=== PATIENT | female | born 1985 | race Caucasian/White ===

== ENCOUNTER 2018-06-28 15:29 | Inpatient (IN) | payer OTHER ==
[~2018-06-28] VITALS: Ht 152.4 cm; Wt 61.5 kg
[~2018-06-28 15:29] MED LIST: PHENYLephrine (100 MCG/ML) 5ML SYG ONE
[2018-06-28 16:46] VITALS: Ht 152.4 cm; Wt 61.5 kg
[2018-06-28 16:47] VITALS: BP 122/71; PULSE 100
[2018-06-28] MEDS ORDERED: PNV11TAB PO (16:48)
[2018-06-28] MEDS ORDERED: LACTATED RINGER'S 1,000 ML IV SCH (18:30)
[2018-06-28] MEDS ORDERED: CARBOPROST 250 MCG INJ IM PRN (20:30)
[2018-06-28] MEDS ORDERED: OXYTOCIN 30 UNITS/LR 500 ML IV SCH (20:30)
[2018-06-28] MEDS ORDERED: MISOPROSTOL 200 MCG TAB PR PRN (20:30)
[2018-06-28] MEDS ORDERED: OXYTOCIN 30 UNITS/LR 500 ML IV PRN (20:30)
[2018-06-28] MEDS ORDERED: AMPICILLIN 2 GM/NS (PMX) 100 ML IV SCH (20:30)
[2018-06-28] MEDS ORDERED: CEFAZOLIN 2 GM/50 ML (PMX) 50 ML IVPB SCH (20:30)
[2018-06-28] MEDS ORDERED: METHYLERGONOVINE 0.2 MG INJ IM PRN (20:30)
--- NOTE | 2018-06-28 20:42 | HP ---
Date/Time of Note Date/Time of Note DATE: 06/28/18 TIME: 20:37 OB - History Hx of Present Free Text/Dictation 33 years old 3 para 2002 with 2 previous delivery and single intrauterine at 37 weeks and 5 days with a NORBERTO of 07/14/2018 complaining of uterine contractions and vaginal spotting. She states good movement. She denies nausea, vomiting, shortness of breath, chest pain, headache, visual changes or LOF. She had her care at [facility] and recently moved to the [facility]. Chief Complaint: Uterine contractions and vaginal spotting Estimated Due Date: Jul 14, 2018 : 3 Para: 2 Spontaneous : 0 Therapeutic : 0 Care: Good Care Ultrasounds: Normal mid trimester US Obstetrical Complications: None Medical Complications: None Past Family/Social History * Past Medical: Noncontributory Past surgical history: x2 Family, social, allergy and Obstetric Histories reviewed which are unremarkable OB Admission Exam Vital Signs Vital Signs Vital Signs Date Temp Pulse Resp B/P (MAP) Pulse Ox O2 O2 Flow FiO2 Time Delivery Rate 06/28/18 99.0 100 122/71 16:47 (88) Physical Exam HEENT: WNL Heart: Rhythm Normal Lungs: Clear Abdomen: WNL Extremities: Normal Cervical Dilatation: Fingertip Effacement: Other (60%) Station: -2 Membranes: Intact Heart Rate: 130's Accelerations: Accelerations Present Decelerations: No Decelerations Varibility: Moderate Contractions on Admission: < 5 Minutes Apart Intensity: Mild Last 72 hours Lab Results FINDINGS: Gestation: Single live intrauterine gestation. Cardiac activity: 141 beats per minute. Presentation: Vertex. Placenta: Location: Posterior Appearance: No previa or abruption. Measurements: BPD = 9.2 cm, 37 weeks and 3 days HC = 33 cm, 37 weeks and 3 days AC = 33.1 cm, 37 weeks and 0 days FL = 7.1 cm, 36 weeks and 4 days Gestational Age: AUA estimated gestational age: 37 weeks 1 day LMP estimated gestational age: 37 weeks 5 days AUA estimated date of delivery: 07/18/2018 The EFW = 3079 g, 40%ile based on LMP age. Biophysical profile: - movement = 2/2 - tone = 2/2 - breathing = 2/2 - MERCY = 2/2 Total = 8/8 IMPRESSION: Single live intrauterine gestation of 37 weeks 1 day by ultrasound criteria. Normal biophysical profile. OB Assessment/Plan Other plan: 33 years old with 2 previous delivery at 37 weeks and 5 days in labor - FHR: No sign of metabolic acidosis- Category I - Continuous EFM, toco - CBC, blood type and screen - Complete labs ordered The risk of delivery including but not limited to bleeding, infection, injury to other organs (bowel, bladder, ureter, vessels, nerves), injury to fetus, blood transfusion, blood transfusion related infection, risk of anesthesia, adhesion, needs for future , removal of uterus or any other indicated surgery was discussed with the patient and her family. She expressed understanding. All of her questions were answered. She signed the informed consent. PHYSICIAN'S VERIFICATION OF INFORMED CONSENT The patient and her family member counseled regarding the procedure, its indications, risks, potential complications and alternatives and any questions were answered. Consent was obtained. PLANNED PROCEDURE/TREATMENT: delivery with possible using vacuum/forceps and any other indicated surgery PHYSICIAN'S VERIFICATION OF INFORMED CONSENT FOR BLOOD TRANSFUSION: There is a reasonable possibility that blood transfusion will be necessary as a result of the patient's procedure. I have discussed the following with the patient/[employer] representative: An explanation of the benefits and risks of the transfusion of blood or blood products and the possible alternatives. All questions have been answered to the patient's satisfaction. INFORMED CONSENT:The patient has been informed of: The nature of the proposed care, treatment, services, medications, interventions or procedures. Potential benefits, risks or side effects, including potential problems related to recuperation. The likelihood of achieving care treatment and service goals. Reasonable alternatives to the proposed care, treatment and service. The relevant risks, benefits and side effects related to alternatives, including the possible results of not receiving care, treatment and services. When indicated, any limitations on the confidentiality of information learned from or about the patient. If appropriate, the risks, benefits and alternatives of the drugs to be used for sedation/analgesia including moderate sedation. If appropriate, patient has been provided information on the risks, benefits and alternatives to the transfusion of blood and/or blood products. If appropriate, patient has been provided information regarding the Cristiano Alex Blood Act. HAKEEM ESCOBAR Jun 28, 2018 20:42
--- NOTE | 2018-06-28 20:56 | PREAC ---
Date/Time of Note Date/Time of Note DATE: 06/28/18 TIME: 20:54 Anesthesia Eval and Record Evaluation Time Pre-Procedure Interview DATE: 06/28/18 TIME: 20:54 Age 33 Sex female NPO: 8 hrs Preoperative diagnosis repeat c section Planned procedure csection Past Medical History Past Medical History: Includes : Gestational age: (37.5) Surgery & Anesthesia Issues Other issues, No known issue Meds Anticoagulation: No Beta Patricia within 24 hr: No Reason Beta Patricia not given: Pt. not on B-Patricia Reported Medications [id number] ( 19) 1 Each Tablet, 1 TAB PO DAILY, TAB 06/28/18 Current Medications Lactated Ringer's 1,000 ml @ 125 mls/hr Q8H IV Last administered on 06/28/18at 20:45; Admin Dose 125 MLS/HR; Start 06/28/18 at 18:30 Ampicillin 100 ml @ 100 mls/hr ONCE IV ; Start 06/28/18 at 20:30 Cefazolin Sodium/ Dextrose 50 ml @ 100 mls/hr ONCE IVPB ; Start 06/28/18 at 2 0:30 Oxytocin/Lactated Ringer's 500 ml @ 125 mls/hr POST IV ; Start 06/28/18 at 20:30 Oxytocin/Lactated Ringer's 500 ml @ 0 mls/hr ONCE PRN IV .VAGINAL BLEEDING; Start 06/28/18 at 20:30 Methylergonovine Maleate (Methergine) 0.2 mg ONCE PRN IM .VAGINAL BLEEDING; Start 06/28/18 at 20:30 Carboprost Tromethamine (Hemabate) 250 mcg ONCE PRN IM .VAGINAL BLEEDING; Start 06/28/18 at 20:30 Misoprostol (Cytotec) 1,000 mcg ONCE PRN MT .VAGINAL BLEEDING; Start 06/28/18 at 20:30 Meds reviewed: Yes Allergies Coded Allergies: No Known Allergy (Unverified , 06/28/18) Allergies Reviewed: Yes Labs/Studies Labs Reviewed: Reviewed by anesthesiologist Result Diagram: 06/28/18 2019 Laboratory Tests 06/28/18 20:19 test: Positive Studies: ECG (n/a), CXR (n/a) Pre-procedure Exam Last vitals Vital Signs Date Temp Pulse Resp B/P (MAP) Pulse Ox O2 O2 Flow FiO2 Time Delivery Rate 06/28/18 99.0 100 122/71 16:47 (88) Airway: Adequate mouth opening Mallampati: Mallampati I Teeth: Normal Lung: Normal Heart: Normal ASA Physical Status ASA physical status: 2 Emergency: None Planned Anesthetic Neuraxial: Spinal Planned Pain Management Sub-arachniod narcotics Pre-operative Attestations Prior to commencing anesthesia and surgery, the patient was re-evaluated, there was verification of: *The patient's identity *The results of appropriate recent lab work and preoperative vital signs *The above evaluation not changing prior to induction *Anesthetic plan, risk benefits, alternative and complications discussed with patient/family; questions answered; patient/family understands, accepts and wishes to proceed. JOSÉ MIGUEL CAMAERNA MD Jun 28, 2018 20:56
[2018-06-28] MEDS ORDERED: CITRIC ACID/NA CITRATE 30 ML CUP PO ONE (21:30)
[2018-06-28] MEDS ORDERED: KETOROLAC 30 MG INJ ONE (21:31)
[2018-06-28] MEDS ORDERED: morphine SULFATE/PF (10 MG/10 ML) INJ ONE (21:31)
[2018-06-28] MEDS ORDERED: ONDANSETRON 4 MG INJ ONE (21:31)
[2018-06-28] MEDS ORDERED: METOCLOPRAMIDE 10 MG INJ ONE (21:31)
[2018-06-28] MEDS ORDERED: BUPIVACAINE 0.75%/DEXT (SPINAL) 2 ML INJ ONE (21:34)
[2018-06-28] MEDS ORDERED: OXYTOCIN 30 UNITS/LR 500 ML IV ONE (22:39)
--- NOTE | 2018-06-29 00:46 | OPPN ---
Date/Time of Note Date/Time of Note DATE: 06/29/18 TIME: 00:45 Anesthesia Follow up Anesthesia Follow up Last documented vital signs Vital Signs Date Temp Pulse Resp B/P (MAP) Pulse Ox O2 O2 Flow FiO2 Time Delivery Rate 06/28/18 99.0 100 122/71 16:47 (88) Respiratory function: WNL Cardiovascular function: WNL Comments A 33 year female s/p spinal with duramorph for post op date POD #1 is fine. no pain, N/V, itching , or headache. no neural deficit JOSÉ MIGUEL CAMARENA MD Jun 29, 2018 00:46
[2018-06-29] MEDS ORDERED: morphine 2 MG INJ IV PRN ×6 (01:00→08:30)
[2018-06-29] MEDS ORDERED: KETOROLAC 30 MG INJ IV PRN ×3 (01:00→08:30)
[2018-06-29] MEDS ORDERED: ONDANSETRON 4 MG INJ IV PRN ×2 (01:00)
[2018-06-29] MEDS ORDERED: morphine (1 MG/ML) 10ML SYRINGE IV PRN ×3 (01:00)
[2018-06-29] MEDS ORDERED: NALOXONE (0.4 MG/ML) INJ IV PRN ×2 (01:00→08:30)
[2018-06-29] MEDS ORDERED: DIPHENHYDRAMINE 50 MG INJ IV PRN ×2 (01:00)
[2018-06-29 01:22] VITALS: BP 124/57; PULSE 68; RESP 18
[2018-06-29] MEDS ORDERED: OXYTOCIN 30 UNITS/LR 500 ML IV SCH (01:55)
[2018-06-29] MEDS ORDERED: OXYTOCIN 30 UNITS/LR 500 ML IV PRN (02:00)
[2018-06-29] MEDS ORDERED: METHYLERGONOVINE 0.2 MG TAB PO PRN (02:00)
[2018-06-29] MEDS ORDERED: MISOPROSTOL 200 MCG TAB PR PRN (02:00)
[2018-06-29] MEDS ORDERED: CARBOPROST 250 MCG INJ IM PRN (02:00)
[2018-06-29] MEDS ORDERED: METHYLERGONOVINE 0.2 MG INJ IM PRN (02:00)
--- NOTE | 2018-06-29 02:06 | OPR ---
Operative Report Planned Procedure Procedure date Jun 29, 2018 Procedure(s) Repeat low transverse delivery Performed by see signature line Programming Specialist: MIGUELITO ABEBE MD Anesthesiologist: JOSÉ MIGUEL CAMARENA MD Pre-procedure diagnosis 33 years old with 2 previous delivery at 37 weeks and 5 days in labor [id number] Anesthesia Type: [id number] spinal Post-Procedure Post-procedure diagnosis 1. 33 years old with 2 previous delivery at 37 weeks and 5 days in labor 2. There was a 5 cm window on lower uterine segment Findings 1. Normal uterus except there was 5 cm window on lower uterine segment. Normal fallopian tubes and ovaries 2. Viable male in cephalic presentation. 8 at one minute and 9 in 5 minutes. Weight: 3205 g - 7 pound 1 ounce. Time of delivery: 22:13 3. Placenta with three vessel cord 4. Amniotic fluid - Clear Estimated Blood Loss: 500 - 600 mls Specimen(s) none Grafts/Implant(s) none Complication(s) none Pt Condition post procedure: stable Disposition: PACU Procedure Description INDICATION AND HISTORY: A 33 years old with 2 previous delivery at 37 weeks and 5 days in labor. The risk of delivery including but not limited to bleeding, infection, injury to other organs (bowel, bladder, ureter, vessels, nerves), injury to fetus, blood transfusion, blood transfusion related infection, risk of anesthesia, adhesion, needs for future , removal of uterus or any other indicated surgery was discussed with the patient and her family. She expressed understanding. All of her questions were answered. She signed the informed consent. DESCRIPTION OF OPERATION: The patient was taken to the operating room, where she was identified and the procedure was verified. The patient received two gram of Ancef 30 minutes prior to surgery. Spinal anesthesia was placed. The patient placed in the dorsal supine position with a left tilt. The heart rate was 135 bpm. The patient was then prepped and draped in the normal sterile fashion. A Pfannenstiel skin incision was made and carried down to the fascia with knife. The fascia was incised in the midline and the fascial incision was carried laterally with Hector scissors. The superior portion of the fascial incision was then grasped with Doc clamps and tented up and dissected off the underlying rectus muscle with sharp dissection. The lower portion of the fascial incision was then made in a similar fashion. The rectus muscle was and the peritoneum was entered. The peritoneal incision was then stretched and a bladder blade was inserted. As noted above there was a 5 cm window on lower uterine segment. The the utero-vesical peritoneal reflection was incised transversely and the bladder flap was reflected inferiorly.Then, an incision was made in the lower uterine segment in a transverse fashion above the window with a knife and extended bluntly. Vacuum used to assist delivery of head. The was delivered atraumatically in cephalic presentation with the above findings. The umbilical cord was clamped and cut. The neonatology resuscitation team was present and the baby was handed to them. A cord blood sample was obtained for further evaluation. The placenta and membrane, which appeared normal were Removed. The uterus was exteriorized and cleared of all clot and debris. The uterus was then closed in a two layer fashion with 0- Monocryl. At the time of closure, hemostasis was noted. The gutters were irrigated. The peritoneum was reapproximated with 3-0 *Vicryl. The muscle was reapproximated with 3-0 Vicryl. The fascia was approximated with 0-Vicryl in a running fashion. The subcutaneous tissue was re approximated with 3-0 vicryl. The skin was closed with 4-0 Monocryl. All instruments, sponges and needle counts were correct x3. The patient tolerated the procedure well. She transferred to the recovery room in stable condition. HAKEEM ESCOBAR Jun 29, 2018 02:06
--- NOTE | 2018-06-29 03:58 | TRIAGE ---
OB Triage Datetime Report Generated by CPN: 06/29/2018 03:58 Datetime: 06/29/2018 01:30 Stage of : Labor Datetime: 06/29/2018 01:00 Stage of : Recovery Pain Assessment Pain Scale: 0 Pain Presence: None/Denies Pain Type: N/A Datetime: 06/29/2018 00:45 Stage of : Recovery Pain Assessment Pain Scale: 0 Pain Presence: None/Denies Pain Type: N/A Datetime: 06/29/2018 00:30 Stage of : Recovery Pain Assessment Pain Scale: 0 Pain Presence: None/Denies Pain Type: N/A Datetime: 06/29/2018 00:15 Stage of : Recovery Pain Assessment Pain Scale: 0 Pain Presence: None/Denies Pain Type: N/A Datetime: 06/29/2018 00:00 Stage of : Recovery Pain Assessment Pain Scale: 0 Pain Presence: None/Denies Pain Type: N/A Datetime: 06/28/2018 23:45 Stage of : Recovery Pain Assessment Pain Scale: 0 Pain Presence: None/Denies Pain Type: N/A Datetime: 06/28/2018 23:30 Stage of : Recovery Pain Assessment Pain Scale: 0 Pain Presence: None/Denies Pain Type: N/A Datetime: 06/28/2018 23:15 Stage of : Recovery Pain Assessment Pain Scale: 0 Pain Presence: None/Denies Pain Type: N/A Datetime: 06/28/2018 22:55 Stage of : Recovery Pain Assessment Pain Scale: 0 Pain Presence: None/Denies Pain Type: N/A Datetime: 06/28/2018 21:00 Labor Evaluation Frequency: OCCASIONAL Monitor Mode: External Quality: Mild Pattern: Normal: <= 5 Contractions in 10 Minutes Resting Tone Hansen: Relaxed Heart Rate FHR Baseline Rate: 150 Monitor Mode: External US FHR Baseline Changes: No Baseline Change Variability: Moderate 6-25 bpm Accelerations: 15X15 Decelerations: None Category: Category I Datetime: 06/28/2018 20:26 Assessment Type: Ongoing Assessment Vaginal Bleeding: None Maternal Assessment Level of Consciousness: Fully Conscious DTR's/Clonus: DTRs 2+; No Clonus Headache: Denies Blurred Vision: No Respiratory Effort: Unlabored; Regular Rhythm; Equal Expansion Breath Sounds, Left: Clear and Equal Breath Sounds, Right: Clear and Equal Nausea/Vomiting: Denies RUQ Epigastric Pain: Denies Lower Extremities Edema: Bilateral Lower Extremities (Annotations: TRACE) Upper Extremities Edema: Bilateral Upper Extremities (Annotations: TRACE) Facial Edema: None Fall Risk Assessment History of Falling: (0) No Secondary Diagnosis: (0) No Ambulatory Aid: (0) Bedrest/Nurse Assist IV Therapy: (20) Yes Gait: (0) Normal/Bedrest/Immobile Mental Status: (0) Oriented to Own Ability Fall Score: 20 Fall Risk Score Definition: No Risk: No action required Pain Assessment Pain Scale: 4 Pain Presence: Intermittent Pain Type: Contraction Pain Location: Abdomen Membrane Status: Intact Datetime: 06/28/2018 19:50 Stage of : OB Triage Datetime: 06/28/2018 19:28 Stage of : OB Triage Labor Evaluation Frequency: 2-5 Monitor Mode: External Quality: Moderate Pattern: Normal: <= 5 Contractions in 10 Minutes Resting Tone Hansen: Relaxed Heart Rate FHR Baseline Rate: 155 Monitor Mode: External US FHR Baseline Changes: No Baseline Change Variability: Moderate 6-25 bpm Accelerations: 15X15 Decelerations: None Category: Category I Pain Assessment Pain Scale: 4 Pain Presence: Intermittent Pain Type: Contraction Pain Location: Abdomen Datetime: 06/28/2018 18:35 Labor Evaluation Frequency: 2-4 Monitor Mode: External Duration (sec)2399: 50-70 Quality: Mild Pattern: Normal: <= 5 Contractions in 10 Minutes Resting Tone Hansen: Relaxed Heart Rate FHR Baseline Rate: 160 Monitor Mode: External US Variability: Moderate 6-25 bpm Accelerations: 10X10 Decelerations: None Category: Category I Pain Assessment Pain Scale: 0 Pain Presence: Intermittent Pain Type: Cramping Pain Location: Abdomen Pain Goal: 3 Pain Relief Measures: Comfort Measures Datetime: 06/28/2018 17:37 Stage of : OB Triage Datetime: 06/28/2018 17:31 Labor Evaluation Frequency: 2-5 Monitor Mode: External Duration (sec)2399: 40-50 Quality: Mild Pattern: Normal: <= 5 Contractions in 10 Minutes Resting Tone Hansen: Relaxed Heart Rate FHR Baseline Rate: 135 Monitor Mode: External US Variability: Moderate 6-25 bpm Accelerations: 10X10 Decelerations: None Category: Category I Pain Assessment Pain Scale: 0 Pain Presence: Intermittent Pain Type: Cramping Pain Location: Abdomen Pain Goal: 3 Pain Relief Measures: Comfort Measures Datetime: 06/28/2018 16:36 Stage of : OB Triage Assessment Type: Triage Maternal Assessment Level of Consciousness: Fully Conscious DTR's/Clonus: DTRs 2+; No Clonus Headache: Denies Blurred Vision: No Respiratory Effort: Unlabored; Regular Rhythm; Equal Expansion Breath Sounds, Left: Clear and Equal Breath Sounds, Right: Clear and Equal Nausea/Vomiting: Denies RUQ Epigastric Pain: Denies Facial Edema: None Temperature Route: Axillary Fall Risk Assessment History of Falling: (0) No Secondary Diagnosis: (0) No Ambulatory Aid: (0) Bedrest/Nurse Assist IV Therapy: (0) No Gait: (0) Normal/Bedrest/Immobile Mental Status: (0) Oriented to Own Ability Fall Score: 0 Fall Risk Score Definition: No Risk: No action required Labor Evaluation Frequency: 2-3 Monitor Mode: External Duration (sec)2399: 50-70 Quality: Mild Pattern: Normal: <= 5 Contractions in 10 Minutes Interventions: Sterile Vaginal Exam Heart Rate FHR Baseline Rate: 145 Monitor Mode: External US Variability: Moderate 6-25 bpm Accelerations: 10X10 Decelerations: None Category: Category I Pain Assessment Pain Scale: 0 Pain Presence: None/Denies Pain Type: N/A Pain Goal: 3 Pain Relief Measures: Comfort Measures Vaginal Exam Dilatation (cms): 0.5 Effacement (%): 60 Station: -2 Exam By: S GUILLERMINA Membrane Status: Intact Datetime: 06/28/2018 16:35 Time of Arrival: 06/28/2018 15:25 EGA: 37.5 Arrived By: Ambulatory Arrived From: Home Chief Complaint: C/O UC'S Q 10 MIN TODAY WITH SCANT BLEEDING, DENIES LEAKING OF WATER Movement: Present Contractions: Irregular Rupture of Membranes: Denies Vaginal Bleeding: Scant Vaginal Discharge: Present Recent Sexual Intercouse: Denies Abdominal Trauma: Not Applicable Patient Complaints: Contractions; Cramping Time Provider Notified: 06/28/2018 17:37 Provider Notified: brigido Initial Plan: MONITOR, VE, bpp efw, iv hydration Membranes Ruptured Date/Time: 06/28/2018 22:12 Membranes Rupture Method: Artificial Amniotic Fluid Color: Clear Amniotic Fluid Amount: Moderate Amniotic Fluid Odor: None Presentation 'A': Cephalic
[2018-06-29 04:15] VITALS: BP 113/66; PULSE 71; RESP 19
[2018-06-29 08:20] VITALS: BP 102/63; PULSE 89; RESP 18
[2018-06-29] MEDS: SENNA/DOCUSATE NA (8.6MG/50MG) TAB PO SCH ×2 (09:00→21:08)
[2018-06-29] MEDS: DEXTROSE 5%-LR 1,000 ML IV SCH ×3 (09:55→17:55)
[2018-06-29] MEDS: LANOLIN HPA 1 PKT TOP PRN (10:45)
[2018-06-29 12:21] VITALS: BP 123/70; PULSE 83; RESP 18
--- NOTE | 2018-06-29 14:46 | QN ---
Documentation Comment no flatus yet still have dockery in tolerating liquid well vss afebrile abdomen soft wound dry lochia min calf neg fpr tenderness A s/p repeat c/s #1 P ambulate MIGUELITO ABEBE MD Jun 29, 2018 14:46
[2018-06-29 15:30] VITALS: BP 104/58; PULSE 91; RESP 18
[2018-06-29 19:35] VITALS: BP 100/59; PULSE 88
[2018-06-30] MEDS ORDERED: HYDROCODONE/APAP (5/325) TAB PO PRN ×2 (01:36→11:00)
[2018-06-30] MEDS: HYDROCODONE/APAP (5/325) TAB PO SCH ×3 (01:41→17:16)
[2018-06-30] MEDS: DEXTROSE 5%-LR 1,000 ML IV SCH ×3 (01:55→17:55)
[2018-06-30 04:25] VITALS: BP 103/55; PULSE 85; RESP 18
[2018-06-30] MEDS: IBUPROFEN 800 MG TAB PO SCH ×3 (05:36→21:46)
[2018-06-30 07:45] VITALS: BP 107/57; PULSE 93; RESP 18
[2018-06-30] MEDS ORDERED: FERROUS GLUCONATE (EC) 325 MG TAB PO SCH (09:00)
[2018-06-30] MEDS: SENNA/DOCUSATE NA (8.6MG/50MG) TAB PO SCH ×2 (09:21→21:08)
--- NOTE | 2018-06-30 10:33 | PN ---
Date/Time of Note Date/Time of Note DATE: 06/30/18 TIME: 10:32 OB Subjective Subjective Subjective Patient without complaints. Tolerating regular diet, ambulating, passing fla tus, pain controlled. OB Objective Objective Objective Gen: NAD Abd: I-C/D/I OB Assessment/Plan Other Assessment: POD2 s/p repeat Other plan: -continue routine postop care -anticipate discharge home tomorrow AYANA SUAREZ Jun 30, 2018 10:33
--- NOTE | 2018-06-30 10:39 | PAC ---
Date/Time of Note Date/Time of Note DATE: 06/30/18 TIME: 10:38 Post-Anesthesia Notes Post-Anesthesia Note Last documented vital signs Vital Signs Date Temp Pulse Resp B/P (MAP) Pulse Ox O2 O2 Flow FiO2 Time Delivery Rate 06/30/18 98.3 93 18 107/57 97 Room Air 07:45 (74) 06/29/18 98.2 90 19 109/69 96 19:35 Activity: WNL Respiratory function: WNL Cardiovascular function: WNL Mental status: Baseline Pain reasonably controlled: Yes Hydration appropriate: Yes Nausea/Vomiting absent: No JOSÉ MIGUEL CAMARENA MD Jun 30, 2018 10:39
[2018-06-30] MEDS ORDERED: DIPHTH/TET/ACEL PERTUSS (ADULT) 0.5 ML VIAL IM* ONE (11:00)
[2018-06-30] MEDS: FERROUS GLUCONATE (EC) 325 MG TAB PO SCH (12:51)
[2018-06-30] MEDS ORDERED: HYDROCODONE/APAP (5/325) TAB PO SCH (14:00)
[2018-06-30 15:50] VITALS: BP 99/65; PULSE 97; RESP 18
[2018-06-30 19:50] VITALS: BP 113/66; RESP 18
[2018-06-30] MEDS: LANOLIN HPA 1 PKT TOP PRN (21:08)
[2018-07-01] MEDS: HYDROCODONE/APAP (5/325) TAB PO SCH ×2 (01:28→10:57)
[2018-07-01] MEDS: DEXTROSE 5%-LR 1,000 ML IV SCH (01:55)
[2018-07-01 04:15] VITALS: BP 111/58; PULSE 72; RESP 18
[2018-07-01] MEDS: IBUPROFEN 800 MG TAB PO SCH ×2 (05:54→14:00)
[2018-07-01 08:00] VITALS: BP 109/53; PULSE 80; RESP 19
[2018-07-01] MEDS: FERROUS GLUCONATE (EC) 325 MG TAB PO SCH (08:49)
[2018-07-01] MEDS: SENNA/DOCUSATE NA (8.6MG/50MG) TAB PO SCH (08:49)
--- NOTE | 2018-07-01 13:08 | QN ---
Documentation Comment POD#3 is stable afebrile tolerates diet No VB +BM +voids No sign of depression VS stable Gen NAD Abd soft NT ND Incision intact Genitalia No blood at perineum ---> Discharge with precautions --->Questions answered --->Follow up with provider JOSE HUGO M.D. Jul 01, 2018 13:08
--- NOTE | 2018-07-01 13:09 | DS ---
Date/Time of Note Date/Time of Note DATE: 07/01/18 TIME: 13:09 Discharge Summary Admission/Discharge Info Admit Date/Time Jun 28, 2018 at 19:50 Discharge Date/Time Jun Discharge Diagnosis Patient Condition: Good Hospital Course uneventful Home Meds Reported Medications [id number] ( 19) 1 Each Tablet, 1 TAB PO DAILY, TAB 06/28/18 Primary Care Provider Not On Staff Doctor JOSE HUGO M.D. Jul 01, 2018 13:09
[2018-07-02] MEDS ORDERED: DIPHTH/TET/ACEL PERTUSS (ADULT) 0.5 ML VIAL IM* ONE (09:00)
[2018-07-02] MEDS ORDERED: MEASLES,MUMPS,RUBELLA VACCINE INJ SC* ONE (09:00)
== END 2018-07-01 15:40 | disposition home or self-care (01) | DRG 788 ==
LOC: L-D 15:29 → OBT 15:29 → L-D 19:50 → OBT 19:50 → L-D 21:36 → MS1 06-29 02:28 → PP1 06-29 22:00
PROVIDERS: ADMIT Obstetrics & Gynecology; ATTEND Obstetrics & Gynecology
PROC: 10D00Z1 Extraction of Products of Conception, Low, Open Approach (ICD-10-PCS; principal; 2018-06-28 21:00)
DX: O34.219 Maternal care for unspecified type scar from previous cesarean delivery (principal); O94 Sequelae of complication of pregnancy, childbirth, and the puerperium; Z3A.37 37 weeks gestation of pregnancy; Z37.0 Single live birth; Z23 Encounter for immunization
CPT/HCPCS: 76815; 76818; 80307; 81001; 85025; 85610; 85730; 86592; 86703; 86762; 86850; 86900; 86901; 87340; 90686; 90715; 96360; 99464; G0463; J0690; J1885; J2274; J2370; J2405; J2590; J2765; J7120; J7121